=== PATIENT | male | born 1955 | race Caucasian/White ===

== ENCOUNTER → 2019-03-05 | Outpatient (CLI) | payer BC, OTHER ==
[~2019-03-05] VITALS: Ht 177.8 cm; Wt 101.8 kg
[~2019-03-05] MED LIST: CRESTOR10 MG PO; FLEXERIL PO; NORCO 5-325 TA1 EAC1 PO; PREDNISONE 10 M10 MG PO; SYNTHROID50 MCG PO
--- NOTE | ~2019-03-05 | HPC ---
[facility] [place] [address] PAIN MANAGEMENT CONSULTATION Name: JORGE ALBERTO ACUÑA Room #: REG SUSAN Tal#: [id number] Admission: 03/05/19 Attend Phys: Ghulam Crowley DO Discharge: Date of : 59 Report #: [id number] THIS REPORT FOR: //name// CC: Ghulam Long MD DATE OF SERVICE: 03/05/2019 REFERRING PHYSICIAN: Dr. Long CHIEF COMPLAINT: Low back pain, left lower extremity pain. HISTORY OF PRESENT ILLNESS: As you know, the patient is a 63-year-old male who reports acute onset of low back pain, left lower extremity pain that began on 02/16/2019. He denies specific injury or trauma that may have led to symptom occurrence. The patient indicates he was in his normal state of health prior to this incident. He indicates he trialled conservative treatment options, ydjj-ior-bptstrs medication, but did not see significant improvement. He even tried rest and relaxation, again without efficacy. He subsequently discussed his case with his primary care physician who then sent the patient for imaging of the lumbar spine. The findings of the MRI obtained on 02/18/2019 prompted a referral to our clinic to discuss options for treatment for suspected lumbar radiculopathy. The patient indicates today pain is rhythmic and brief. He describes his pain as shooting, pulling when describing pain. He states pain is a level of 5/10 today, daily average at 5/10, worst pain has been is up to 5/10. The patient states his pain is exacerbated with trying to sit or lie down on his back. Pain is improved with repositioning and lying down. He has been referred to our service to discuss treatment options for suspected lumbar radiculopathy. PAST MEDICAL HISTORY: 1. Dyslipidemia. 2. Hypothyroidism. 3. Osteoarthritis. 4. Tobacco habituation. PAST SURGICAL HISTORY: Right third digit surgery of the upper extremity. SOCIAL HISTORY: The patient denies IV or illicit drug use. He smokes 1 pack of tobacco per day, has done so for 25 years. He reports the use of cannabis on a continual basis. He reports one alcoholic beverage per week. 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 He is not receiving workmen's compensation nor is he trying to obtain disability benefits. He is not in litigation in regards to pain. He is unaccompanied at [address] [address] PAIN MANAGEMENT CONSULTATION Name: JORGE ALBERTO ACUÑA Room #: REG CLI FrandyBarry#: [id number] Admission: 03/05/19 Attend Phys: Ghulam Crowley DO Discharge: Date of : 59 Report #: [id number] visit. REVIEW OF SYSTEMS: Positive for wearing corrective eyewear, low back pain, left lower extremity pain with paresthesias. All other review of systems negative per 12-point review of systems other than those listed in history of present illness. Pain impact score 33/70 indicating moderate interference of daily activities secondary to pain. ALLERGIES: No known drug allergies. CURRENT MEDICATIONS: Levothyroxine 50 mcg once a day, cyclobenzaprine 10 mg 3 times a day, hydrocodone 5/325 one tab every 4 hours p.r.n. for pain, lovastatin 10 mg per day, prednisone 10 mg per day. IMAGING: MRI lumbar spine, obtained 02/26/2019 shows L1-L2 unremarkable, L2-L3 shows slight annular disk bulge without protrusion, small associated disk osteophyte complex, thecal sac is measuring 9 mm. L3-L4 broad-based central disk protrusion, broad-based protrusion left paracentral in its location, has reduced the AP diameter of the midline thecal sac to 3 mm, moderate inferior neural foraminal encroachment bilaterally. L4-L5 disk space narrowing and central annular tear. No focal disk protrusion, mnum-bg-moowswpj inferior neural foraminal encroachment. Central canal measures 8 mm. L5-S1 right paracentral disk protrusion, effacement of the ventral thecal sac contacted the ventral S1 nerve roots. Thecal sac measuring 9 mm. PHYSICAL EXAMINATION: VITAL SIGNS: Blood pressure 143/80, pulse is 67, respiratory rate 16 and unlabored. The patient is 96% on room air. Height 5 feet 10 inches tall, weight 224.4 pounds, BMI calculated 32.2. GENERAL: Well-developed, well-nourished, well-hydrated, obese 63-year-old male appearing stated age, placing current pain score at 5/10. HEENT: Normocephalic, atraumatic. Pupils equal, round, reactive to light. Extraocular muscles are intact. Sclerae nonicteric without injection. NEUROLOGIC: Cranial nerves 2-12 grossly intact. Speech fluent. The patient deemed a good historian. LUNGS: Clear, no wheeze, rhonchi or rales. CARDIOVASCULAR: Regular. No appreciable gallop, no rub. ABDOMEN: Soft, mildly obese, normoactive bowel sounds. EXTREMITIES: Show no clubbing, no cyanosis, and no edema. MUSCULOSKELETAL: Lower extremity strength equal and symmetrical 5/5. Muscle bulk and tone is symmetrical in comparing left lower extremity over right. Seated straight leg raising positive. Supine straight leg raising positive. Brandon's test negative. Modified Gaenslen's positive for axial low back pain. Ankle clonus negative. Babinski is negative. Deep tendon reflexes are symmetrical, diminished bilaterally at patella and Achilles. [facility] [address] [place] [address] PAIN MANAGEMENT CONSULTATION Name: JORGE ALBERTO ACUÑA [place] Room #: REG SUSAN Cornelio.#: [id number] Admission: 03/05/19 Attend Phys: Ghulam Crowley DO Discharge: Date of : 59 Report #: [id number] ASSESSMENT: 1. Lumbar radiculopathy. 2. Severe central canal stenosis of lumbar spine. 3. Displacement of lumbar intervertebral disk with radiculopathy. 4. Lumbosacral spondylosis with radiculopathy. 5. Neural foraminal stenosis of lumbar spine. 6. Facet arthropathy of the lumbar spine. 7. Lumbar degeneration. 8. Chronic intractable pain. Based on today's physical exam and history the patient has provided, the description the patient uses in regard to pain as well as location of symptoms, likely source of the patient's pain is lumbar radiculopathy. The patient and I discussed at length today the treatment options for lumbar radicular symptoms based on the findings of his MRI. Unfortunately, he has severe near critical central canal stenosis at the L3-L4 level, reducing the thecal sac to only 3 mm. We discussed the limited treatment options that are available for the findings therein. Following was discussed with the patient today: 1. We discussed that physical therapy, stretching exercises may improve symptoms transiently but will not provide long-term benefit as I believe that the central canal stenosis will continue to be problematic. Certainly physical therapy can be beneficial, but will have to watch to determine if his pain intensifies with this activity. We discussed with the patient as well medication management utilizing anti-inflammatory therapies and neuropathic pain medications to assist in current neuropathic symptoms. We discussed epidural injection under fluoroscopic guidance to address symptoms as quickly as possible, understanding that the severity of the stenosis may preclude the use from providing much in the way of improvement. We also discussed surgical decompression from a traditional standpoint utilizing Neurosurgery. After reviewing risks and benefits of all proposed treatment options, the patient chose to continue current treatment with the understanding that he may ultimately have to look towards more aggressive treatment options in the future. 2. We made no changes in the patient's current medication management. He wishes to discuss further his case with his primary care physician and discuss their suggestions for treatment. I advised the patient that the treatment options are fairly limited and that treatment options that we have provided are the typical treatment for lumbar radicular symptoms secondary to severe central canal stenosis, though I encouraged the patient to follow up with his PCP as directed. 3. We will see the patient back in followup visit on an as needed basis for possible interventional treatments. I do feel there is a possibility epidural injection may provide some improvement initially and these could be utilized as a temporizing measure. We will certainly be willing to see the patient back in followup visit if he requests this injection. 4. We wish to thank the referring physician, Dr. Long for the opportunity to see the patient in consultation. We will keep you apprised of his response [address] [address] PAIN MANAGEMENT CONSULTATION Name: JORGE ALBERTO ACUÑA Room #: REG CLShaina Parada#: [id number] Admission: 03/05/19 Attend Phys: Ghulam Crowley DO Discharge: Date of : 59 Report #: [id number] to treatment if he does return to undergo any type of interventional treatments or medication changes. Again, we wish to thank you for the opportunity to see the patient in consultation. By: [id number] Ghulam Crowley DO /jeremy
[2019-03-05 08:32] VITALS: BP 143/80
--- NOTE | 2019-03-05 08:50 | NUR ---
Pain Clinic Assessment: 1. History of Osteoarthritis: SPINE History of Rheumatoid Arthritis: Not Applicable 2. Height: 5 ft. 10 in. 177.8 cm. Weight: 224.4 lb. oz. 101.787 kg. Patient's BMI: 32.2 3. Vital Signs: BP: 143/80 Pulse: 67 Resp: 16 Temp: 02 Sat: 96 ECG Mon: 4. Pain Intensity: 5 5. Fall Risk: Dizziness: N Needs help standing or walking: Y Fallen in the last 3 months: N Fall risk comments: 6. Patient on Blood Thinner: None 7. History of Hypertension: N 8. Opioid Therapy greater than 6 weeks: N Opiate Contract Signed: 9. Risk Assessment Tool Provided: 10. Functional Assessment Tool: 11. Recreational Drug Use: Past greater than 3 mos Drug Type: CANNABIS Tobacco Use: Former Smoker Tobacco Type: Cigarettes Amount or Packs/day: 1 How Many Years: 25 Alcohol Use: No Frequency: Quant:
== END ==
LOC: PAIN 06:49
DX: M47.27 Other spondylosis with radiculopathy, lumbosacral region (principal); E78.5 Hyperlipidemia, unspecified; E03.9 Hypothyroidism, unspecified; M19.90 Unspecified osteoarthritis, unspecified site; M51.16 Intervertebral disc disorders with radiculopathy, lumbar region; M48.062 Spinal stenosis, lumbar region with neurogenic claudication; G89.4 Chronic pain syndrome; Z79.899 Other long term (current) drug therapy

== ENCOUNTER → 2019-05-08 | Outpatient (CLI) | payer OTHER ==
[~2019-05-08] VITALS: Ht 177.8 cm; Wt 104.3 kg
[~2019-05-08] MED LIST changes: +ASPIR 8181 M1 PO; +COQ-10100 MG PO; +FISH OIL 1,001000 M2 PO; +NABUMETONE 500500 M1 PO; +NEURONTIN 300300 M1 PO; +SUPER THERAVIT1 EACH PO
[2019-05-08 10:00] VITALS: BP 130/68
--- NOTE | 2019-05-08 10:20 | NUR ---
Pain Clinic Assessment: 1. History of Osteoarthritis: SPINE History of Rheumatoid Arthritis: Not Applicable 2. Height: 5 ft. 10 in. 177.8 cm. Weight: 230.0 lb. oz. 104.328 kg. Patient's BMI: 33.0 3. Vital Signs: BP: 130/68 Pulse: 61 Resp: 14 Temp: 02 Sat: 97 ECG Mon: 4. Pain Intensity: 4 5. Fall Risk: Dizziness: N Needs help standing or walking: N Fallen in the last 3 months: N Fall risk comments: 6. Patient on Blood Thinner: None 7. History of Hypertension: N 8. Opioid Therapy greater than 6 weeks: N Opiate Contract Signed: 9. Risk Assessment Tool Provided: 10. Functional Assessment Tool: 11. Recreational Drug Use: Past greater than 3 mos Drug Type: Tobacco Use: Former Smoker Tobacco Type: Amount or Packs/day: How Many Years: Alcohol Use: No Frequency: Quant:
--- NOTE | 2019-05-21 13:04 | HPC ---
[facility] [address] [place] [address] PAIN MANAGEMENT CONSULTATION Name: JORGE ALBERTO ACUÑA Room #: REG SUSAN GrimesAdrienne#: [id number] Admission: 05/08/19 Attend Phys: Ghulam Crowley DO Discharge: Date of : 59 Report #: [id number] THIS REPORT FOR: //name// CC: Ghulam Long MD DATE OF SERVICE: 05/08/2019 REFERRING PHYSICIAN: Dr. Calvin Logn. CHIEF COMPLAINT: Low back pain, left lower extremity pain with paresthesias. HISTORY OF PRESENT ILLNESS: As you know, the patient is a very pleasant 63-year-old male who has a longstanding history of low back pain, left lower extremity pain with paresthesias. He has been referred back to our clinic by his neurosurgery team for evaluation and treatment for lumbar radiculopathy. He reports pain that begins in the low back, radiates down the left leg, left greater than right. He states sitting, lying down, standing and walking exacerbate symptoms; relaxation, inversion table and medications tend to improve pain. The patient has been seen by Surgery team and they have advised possible surgical options, though he wishes to try adjustments in medication management at this time. He returns to discuss this option today. ALLERGIES: No known drug allergies. CURRENT MEDICATIONS: Coenzyme Q10 100 mg once a day, multivitamin 1 tab per day, omega-3 fish oil 1 tab per day, aspirin 81 mg per day, rosuvastatin 10 mg once a day, hydrocodone/acetaminophen 5/325 one tab every 4 hours p.r.n. for pain, levothyroxine 50 mcg per day. SOCIAL HISTORY: The patient denies IV or illicit drug use. He smokes 1 pack tobacco per day, has done so for greater than 25 years. He reports use of cannabis on a continual basis. He reports 1 alcoholic beverage per week. He is currently employed as a marine engine mechanic. He has been out of work due to pain, but has begun to return to activities. He is not receiving workmen's compensation at this time. REVIEW OF SYSTEMS: Positive for wearing corrective eyewear, low back pain, left lower extremity pain with paresthesias. All other review of systems negative per 12-point review of systems. PHYSICAL EXAMINATION: VITAL SIGNS: Blood pressure 130/68, pulse 61, respiratory rate 14 and unlabored. The patient is 97% on room air. Height 5 feet 10 inches tall, weight 230 pounds, BMI calculated 33.0. [facility] [address] [place] [address] PAIN MANAGEMENT CONSULTATION Name: JORGE ALBERTO ACUÑA Room #: REG [facility]#: [id number] Admission: 05/08/19 Attend Phys: Ghulam Crowley DO Discharge: Date of : 59 Report #: [id number] GENERAL: Well-developed, well-nourished, well-hydrated 63-year-old male. He appears stated age, placing current pain score at 4/10. HEENT: Normocephalic, atraumatic. Pupils equal, round, reactive to light. EXTREMITIES: Show no clubbing, no cyanosis, no edema. MUSCULOSKELETAL: Lower extremity strength remains symmetrical, 5/5. Slight giveaway strength noted with hip flexion, knee extension on left when compared to the right. Muscle bulk and tone appears symmetrical on comparing left lower extremity to the right. Seated straight leg raising positive on the left. Supine straight leg raising positive on the left. SEAN's test negative. Modified Gaenslen's positive for axial low back pain. ASSESSMENT: 1. Lumbar radiculopathy. 2. Severe central canal stenosis of the lumbar spine. 3. Displacement of lumbar intervertebral disk with radiculopathy. 4. Lumbosacral spondylosis with radiculopathy. 5. Neural foraminal stenosis of the lumbar spine. 6. Facet arthropathy of the lumbar spine. 7. Lumbar degeneration. 8. Chronic intractable pain. PLAN: 1. The patient has returned today in followup visit per the request of his Neurosurgery team to discuss treatment options outside of surgical. He has had a discussion with Surgery and has decided that they wish to trial a more conservative treatment option initially as his pain has improved, but understands that there is a strong possibility he will need to undergo decompression in the very near future. He returns to discuss those options today. We discussed with the patient treatment options as we had discussed in our last visit. These would include physical therapy, stretching exercise, core strengthening. We discussed medication management, utilizing neuropathic pain medications. We discussed epidural injection under fluoroscopic guidance and ultimately spinal cord stimulator trial implantation. After reviewing risks and benefits of all proposed treatment options, the patient chose to begin with medication management. 2. The patient will start on gabapentin 300 mg dose; he will begin 1 tab p.o. at bedtime. He will then increase it to 2 tabs p.o. at bedtime in 2 nights, then 3 tabs p.o. at bedtime in 2 nights, then start 1 tab in the morning and 3 tabs at night for 2 nights; then 2 tabs in the morning, 1 tab at noon, 3 tabs at night for 2 nights; then 2 tabs in the morning, 1 tab at noon, 4 tabs at night for 2 nights; then 4 tabs in the morning, 2 tabs at noon and 4 tabs at night. This is an unusual titration, but I believe we will have to escalate medications quite rapidly in this patient's case. The patient was advised to watch for side effects of sleepiness, disorientation, confusion, mental slowing while escalating the dose of medication. If he notes these side effects, reduce to [facility] [address] [place] [address] PAIN MANAGEMENT CONSULTATION Name: DOMENICOJORGE ALBERTO R Room #: REG FERNANDOShaina Parada#: [id number] Admission: 05/08/19 Attend Phys: Ghulam Crowley DO Discharge: Date of : 59 Report #: [id number] the dose prior and monitor for efficacy. If no improvement in symptoms, no side effects, continue the titration as directed. The patient was provided the gabapentin 300 mg tablet, #180 with no refills. 3. The patient will be started on nabumetone 500 mg dose 1 tab p.o. t.i.d. He was given #90 tablets. I have advised the patient to take this medication with meals to reduce the potential of dyspepsia. He is also to watch for side effects of lower extremity edema, and he was advised of the cardiac risks of nonsteroidal anti-inflammatories. The patient was advised to take this medication and no other anti-inflammatories with it. If he notes any side effects, discontinue immediately, call for further instructions. 4. We will see the patient back in a followup visit in about 1 month; we will review efficacy of medication at that visit and determine if any other changes need to be addressed. 5. We wish to thank the re-referring physician for the opportunity to see the patient in consultation. We will keep you apprised of his response to treatment. <ELECTRONICALLY SIGNED> By: Ghulam Crowley DO 05/21/19 1304 [id number] Ghulam Crowley DO /nt
== END ==
LOC: PAIN 06:59
DX: M51.16 Intervertebral disc disorders with radiculopathy, lumbar region (principal); M48.061 Spinal stenosis, lumbar region without neurogenic claudication; M47.27 Other spondylosis with radiculopathy, lumbosacral region; M12.88 Other specific arthropathies, not elsewhere classified, other specified site; G89.4 Chronic pain syndrome

== ENCOUNTER → 2019-06-11 | Outpatient (CLI) | payer OTHER ==
[~2019-06-11] VITALS: Ht 177.8 cm; Wt 104.3 kg
[~2019-06-11] MED LIST changes: +NEURONTIN 300M300 M2 PO
[2019-06-11 08:11] VITALS: BP 146/94
--- NOTE | 2019-06-11 08:26 | NUR ---
Pain Clinic Assessment: 1. History of Osteoarthritis: SPINE History of Rheumatoid Arthritis: Not Applicable 2. Height: 5 ft. 10 in. 177.8 cm. Weight: 230.0 lb. oz. 104.328 kg. Patient's BMI: 33.0 3. Vital Signs: BP: 146/94 Pulse: 54 Resp: 16 Temp: 02 Sat: 100 ECG Mon: 4. Pain Intensity: 3 5. Fall Risk: Dizziness: N Needs help standing or walking: N Fallen in the last 3 months: N Fall risk comments: 6. Patient on Blood Thinner: None 7. History of Hypertension: N 8. Opioid Therapy greater than 6 weeks: N Opiate Contract Signed: 9. Risk Assessment Tool Provided: 10. Functional Assessment Tool: 11. Recreational Drug Use: Past greater than 3 mos Drug Type: Tobacco Use: Former Smoker Tobacco Type: Amount or Packs/day: How Many Years: Alcohol Use: No Frequency: Quant:
--- NOTE | 2019-06-11 15:26 | HPC ---
[facility] [address] [place] [address] PAIN MANAGEMENT CONSULTATION Name: JORGE ALBERTO ACUÑA Room #: REG SUSAN Tal#: [id number] Admission: 06/11/19 Attend Phys: Lola Willis Discharge: Date of : 59 Report #: [id number] THIS REPORT FOR: //name// CC: Lola Norris MD DATE OF SERVICE: 06/11/2019 CHIEF COMPLAINT: Low back pain, left lower extremity pain and paresthesias. HISTORY OF PRESENT ILLNESS: This is a very pleasant 63-year-old gentleman who returned to the pain clinic today for followup from his trial of gabapentin that we started a month ago to help treat his lumbar radiculopathy that radiates into his left leg. He reports this medicine is very beneficial in controlling his pain, taking 600 mg of gabapentin in the morning and 1200 mg at bedtime. It has reduced his pain significantly, currently rating at 3/10 today, located in his low back, bilateral buttocks and legs with the left being greater than the right. It is a dull aching pain, worse with sitting prolonged periods or standing for long periods. He feels that the gabapentin as well as the nabumetone, which he is taking 2 times a day is very beneficial. He reports he does have surgery date scheduled for 08/21. He has not currently returned to work, but has been active around the house. He denies any problems with daytime sleepiness and is not suffering from any constipation. Today, he would like refills of his medications. ALLERGIES: No known drug allergies. CURRENT LIST OF MEDICATIONS: Nabumetone 500 mg, Neurontin 600 mg in the morning and 1200 mg at bedtime, CoQ10, multivitamin, fish oil, aspirin, Crestor and Synthroid. PQRS: 1. He has a history of arthritic changes in his spine. Denies any rheumatoid arthritis. 2. Height is 5 feet 10 inches, weight is 230, BMI is 33. 3. Vital signs 146/94, pulse is 54, respirations 16, oxygen sat is 100. 4. Pain score is 3/10. 5. Denies dizziness, does not need help walking or standing, has not been fallen in the last 3 months. 6. The patient is not on any medicines for hypertension or blood thinners. He is not on any opioids. His risk assessment tool is moderate. Recreational drug use in the past. He is a former smoker and drinks 1 alcoholic beverage a week. PHYSICAL EXAMINATION: [facility] [address] [place] [address] PAIN MANAGEMENT CONSULTATION Name: JORGE ALBERTO ACUÑA Room #: REG [facility]#: [id number] Admission: 06/11/19 Attend Phys: Lola Willis Discharge: Date of : 59 Report #: [id number] GENERAL: This is alert and orientated 63-year-old gentleman who appears his stated age, placing his current pain score at 3/10. HEENT: Normocephalic, atraumatic. Extraocular eye muscles are intact. Mucous membranes are moist. EXTREMITIES: No edema, no cyanosis, no clubbing. MUSCULOSKELETAL: He has a positive modified Gaenselon'sfor axial back pain. Pain radiates into his buttock down the posterior portion of his bilateral legs. Muscle tone and sensation are symmetrical. Strength is 5/5 in his lower extremities. ASSESSMENT: 1. Lumbar radiculopathy. 2. Severe canal stenosis of the lumbar spine. 3. Displacement of lumbar intervertebral disk with radiculopathy. 4. Lumbosacral spondylosis with radiculopathy. 5. Neural foraminal stenosis of the lumbar spine. 6. Chronic intractable pain. 7. Complex medical management. PLAN: 1. We discussed treatment options with the patient today. He finds the gabapentin very beneficial in reducing a significant portion of his pain, currently taking 600 mg in the morning and 1200 at night. The patient denies any daytime sleepiness from this medication and feels like he is sleeping well at night as well. This medication has enabled him to be more active with decreased pain. We will refill his gabapentin 300 mg, #180 with 3 additional refills. This will get him through his surgery date of 08/2011. At that time, we did discuss possible decrease in his medicines after his initial postoperative period in the hopes of being able to wean off this medication. 2. We will refill nabumetone 500 mg t.i.d., #90 with 2 additional refills. The patient is not experiencing any dyspepsia or GI disturbances from this medicine, many days he only takes it twice a day since he forgets the noontime dose when he is active. 3. The patient is instructed to call after his surgery and schedule an appointment so we can discuss followup care as needed. I explained to him that he will receive his opioid medications for surgery from his surgeon. 4. The patient is seen in collaboration today with Dr. Ghulam Crowley. <ELECTRONICALLY SIGNED> By: Lola Willis 06/11/19 1526 [id number] Lola Willis /jeremy
== END ==
LOC: PAIN 06:42
DX: M48.061 Spinal stenosis, lumbar region without neurogenic claudication (principal); M51.16 Intervertebral disc disorders with radiculopathy, lumbar region; M47.26 Other spondylosis with radiculopathy, lumbar region; G89.29 Other chronic pain; Z79.899 Other long term (current) drug therapy